=== PATIENT | female | born 1945 | race Caucasian/White ===

== ENCOUNTER 2016-12-28 10:58 | Inpatient (IN) | payer OTHER ==
[~2016-12-28] VITALS: Ht 154.9 cm; Wt 55.0 kg
[2016-12-28] MEDS ORDERED: ONDANSETRON 4 MG INJ IV STA (11:24)
[2016-12-28] MEDS ORDERED: SOD CHLORIDE 0.9% 1,000 ML IV STA (11:24)
[2016-12-28] MEDS ORDERED: KETOROLAC 30 MG INJ IV STA (11:24)
[2016-12-28 12:03] LABS: BASOPHIL # 0.1 10^3/ul (0.0-0.1); BASOPHILS % 0.4 % (0.0-2.0); EOSINOPHILS # 0.1 10^3/ul (0.0-0.5); EOSINOPHILS % 0.6 % (0.0-7.0); HEMATOCRIT 40.1 % (37.0-47.0); HEMOGLOBIN 13.2 g/dl (12.0-16.0); LYMPHOCYTES # 0.9 10^3/ul (0.8-2.9); LYMPHOCYTES % 7.5 % (15.0-51.0); MEAN CORPUSCULAR HEMOGLOBIN 29.9 pg (29.0-33.0); MEAN CORPUSCULAR HGB CONC 32.9 g/dl (32.0-37.0); MEAN CORPUSCULAR VOLUME 90.9 fl (82.0-101.0); MEAN PLATELET VOLUME 10.1 fl (7.4-10.4); MONOCYTES % 8.3 % (0.0-11.0); NEUTROPHILS % 82.8 % (39.0-77.0); PLATELET COUNT 229 10^3/UL (140-415); RED BLOOD COUNT 4.41 10^6/ul (4.20-5.40); RED CELL DISTRIBUTION WIDTH 12.6 % (11.5-14.5); WHITE BLOOD COUNT 12.5 10^3/ul (4.8-10.8)
[2016-12-28 12:25] LABS: ALBUMIN 4.5 g/dl (3.3-4.9); ALBUMIN/GLOBULIN RATIO 1.5; BILIRUBIN,INDIRECT 0.9 mg/dl (0-1.1); BILIRUBIN,TOTAL 0.9 mg/dl (0.2-1.3); CALCIUM 9.6 mg/dl (8.4-10.2); CREATININE 0.54 mg/dl (0.44-1.00); POTASSIUM 3.9 mmol/L (3.5-5.1); TOTAL PROTEIN 7.5 g/dl (6.1-8.1)
--- NOTE | 2016-12-28 12:48 | RADRPT ---
PROCEDURE: CT Abdomen and Pelvis without contrast. CLINICAL INDICATION: Lower abdominal pain TECHNIQUE: CT scan of the abdomen and pelvis without contrast was performed on a multidetector hig h-resolution CT scanner. The patient was scanned without intravenous contrast. Coronal and sagittal reformatted images were obtained from the axial source images. Images were reviewed on a high-resol [employer] PACS workstation. The total exam CTDI equals 15.24 mGy and the total exam DLP equals 695.9 mGy -cm. One or more of the following dose reduction techniques were used: Automated exposure control. Adjustment of the mA and/or kV according to patient size. Use of iterative reconstruction technique. COMPARISON: None FINDINGS: CT abdomen: The lung bases are remarkable for bibasilar atelectasis and linear pleuroparenchymal scarring. The heart size is normal, without pericardial thickening or effusion. The liver is normal in size and density without focal mass or intrahepatic biliary dilatation. There is approximately 1 cm hypodensity in the right hepatic lobe adjacent the gallbladder. The spleen i s normal in size and homogeneous in density. The stomach is partially collapsed, but is grossly unr emarkable. The pancreas as visualized is normal. The gallbladder is unremarkable. There is no evid ence for biliary dilatation. The adrenal glands are symmetric and normal. The kidneys are symmetri johanne unremarkable as well. No renal calculus or obstructive uropathy or mass lesion is seen. The aorta is of normal caliber. Aortic vascular calcifications are present. There is no retroperit lopez lymphadenopathy. The himanshu hepatis region is clear. The bowel and mesentery, as visualized, are equally unremarkable. CT pelvis: The appendix is enlarged with surrounding inflammatory changes in keeping with acute appendicitis. N o extraluminal gas or loculated periappendiceal fluid collection is identified. The small bowel loop s situated within the pelvis are unremarkable. The pelvic organs are normal. The pelvic sidewalls and inguinal regions are clear. The sigmoid colon and rectum are remarkable for scattered sigmoid d iverticuli without evidence of acute diverticulitis. No mass, lymphadenopathy, or free fluid is see n. The surrounding osseous structures are remarkable for degenerative spondylosis of the spine. No osteolytic or osteoblastic lesion is detected. There is levoconvex scoliosis of the thoracolumbar sp ine . Extensive thoracolumbar fusion hardware is noted down to the level of L4. IMPRESSION: 1. Enlarged appendix with surrounding inflammatory changes in keeping with acute appendicitis. No e xtraluminal gas or periappendiceal fluid collection. 2. Aortoiliac atherosclerosis. 3. Levoconvex scoliosis with extensive thoracolumbar fusion changes. 4. Scattered sigmoid diverticula without evidence of acute diverticulitis. RPTAT: BB .Peter Franco MD, Date Time Electronically viewed and signed by .Peter Franco MD, on 12/28/2016 12:48 .O/
[2016-12-28] MEDS ORDERED: ATEN50TA PO (12:58)
[2016-12-28] MEDS ORDERED: FLUT9.9S NASAL (12:59)
[2016-12-28] MEDS ORDERED: LOSA25TA5 PO (12:59)
[2016-12-28] MEDS ORDERED: OMEP20CA16 PO (12:59)
[2016-12-28] MEDS ORDERED: ASCO500C7 PO (13:01)
[2016-12-28] MEDS ORDERED: LORA-186 PO (13:02)
[2016-12-28] MEDS ORDERED: AMPICILLIN/SULB 3 GM/NS (PMX) 100 ML IVPB ONE (13:30)
--- NOTE | 2016-12-28 13:36 | RADRPT ---
PROCEDURE: XR Chest. CLINICAL INDICATION: Chest pain . TECHNIQUE: Single frontal chest x-ray. COMPARISON: 10/20/2013 FINDINGS: The lungs are clear of acute infiltrates, edema, effusions, or masses.. The cardiomediastinal silho uette is unremarkable. The osseous structures are intact. Fixation rods are seen along the thoracic spine. IMPRESSION: No acute cardiopulmonary disease. Thoracic spine fixation hardware. RPTAT: HJPL .Rajeev Waggoner MD, MD Date Time Electronically viewed and signed by .Rajeev Waggoner MD, on 12/28/2016 13:36 .L/
[2016-12-28] MEDS ORDERED: ONDANSETRON 4 MG INJ IV PRN ×2 (14:00→14:30)
[2016-12-28] MEDS ORDERED: ACETAMINOPHEN 325 MG TAB PO PRN ×2 (14:00→14:30)
--- NOTE | 2016-12-28 14:29 | ERA ---
ER Documentation Chief Complaint Date/Time DATE: 12/28/16 TIME: 14:27 Chief Complaint RLQ ABD PAIN, NAUSEA, NO CONSTIPATION/DIARRHEA, ONSET 1 DAY HPI Patient is a 71-year-old female with hypertension and high cholesterol who presents with abdominal pain. She has right lower quadrant abdominal pain. She had an episode of pain one month ago which lasted 1 week and then went away. She said the pain was there and she was concerned for appendicitis so she went to an emergency department in [place] and did not get a CT scan at that time. She said that the pain returned last night and is a sharp pain in the right lower quadrant which is constant. It is worse with movement. She did have a bowel movement this morning. She has had no treatment as of yet. Upon review of old medical records the patient had one previous visit to the ER in 2013. ROS All systems reviewed and are negative except as per history of present illness. Medications Home Meds Reported Medications Loratadine* (Claritin*) 10 Mg Tablet, 10 MG PO DAILY, TAB 12/28/16 Ascorbic Acid* (Vitamin C*) 500 Mg Capsule.sa, 500 MG PO DAILY, CAP 12/28/16 Omeprazole* (Omeprazole*) 20 Mg Capsule.dr, 20 MG PO DAILY, #30 CAP 12/28/16 Fluticasone Propionate (Flonase Allergy Relief) 9.9 Ml [place].susp, 1 SPRAY NASAL DAILY, #1 BOTTLE TO EACH NOSTRIL 12/28/16 Losartan Potassium* (Losartan Potassium*) 25 Mg Tablet, 25 MG PO DAILY, TAB 12/28/16 Atenolol* (Atenolol*) 50 Mg Tablet, 50 MG PO DAILY, #30 TAB 12/28/16 Allergies Allergies: Coded Allergies: No Known Allergy (Unverified , 10/20/13) PMhx/Soc History of Surgery: Yes (spinal fussion) Hx Psychiatric Problems: No Hx Miscellaneous Medical Probl: No (htn,artheritis.high cholesterol) Hx Alcohol Use: No Hx Substance Use: No Hx Tobacco Use: No Smoking Status: Never smoker FmHx Family History: No diabetes Physical Exam Vitals Vital Signs Date Time Temp Pulse Resp B/P Pulse Ox O2 Delivery O2 Flow Rate FiO2 12/28/16 14:00 98.7 53 16 117/78 98 Room Air 12/28/16 11:04 99.8 53 17 122/70 95 Physical Exam Const: Moderate distress secondary to pain Head: Atraumatic Eyes: Normal Conjunctiva ENT: Normal External Ears, Nose and Mouth. Neck: Full range of motion..~ No meningismus. Resp: Clear to auscultation bilaterally Cardio: Regular rate and rhythm, no murmurs Abd: Soft, Right lower quadrant tenderness to palpation with guarding Skin: No petechiae or rashes Back: No midline or flank tenderness Ext: No cyanosis, or edema Neur: Awake and alert Psych: Normal Mood and Affect Result Diagram: 12/28/16 1140 12/28/16 1140 Results 24 hrs Laboratory Tests Test 12/28/16 11:40 12/28/16 13:20 White Blood Count 12.510^3/ul Red Blood Count 4.4110^6/ul Hemoglobin 13.2g/dl Hematocrit 40.1% Mean Corpuscular Volume 90.9fl Mean Corpuscular Hemoglobin 29.9pg Mean Corpuscular Hemoglobin Concent 32.9g/dl Red Cell Distribution Width 12.6% Platelet Count 34624^3/UL Mean Platelet Volume 10.1fl Neutrophils % 82.8% Lymphocytes % 7.5% Monocytes % 8.3% Eosinophils % 0.6% Basophils % 0.4% Nucleated Red Blood Cells % 0.0/100WBC Lymphocytes # 0.910^3/ul Monocytes # 1.010^3/ul Eosinophils # 0.110^3/ul Basophils # 0.110^3/ul Nucleated Red Blood Cells # 0.010^3/ul Sodium Level 140mmol/L Potassium Level 3.9mmol/L Chloride Level 102mmol/L Carbon Dioxide Level 31mmol/L Anion Gap 11 Blood Urea Nitrogen 16mg/dl Creatinine 0.54mg/dl Glucose Level 114mg/dl Calcium Level 9.6mg/dl Total Bilirubin 0.9mg/dl Direct Bilirubin 0.00mg/dl Indirect Bilirubin 0.9mg/dl Aspartate Amino Transf (AST/SGOT) 62IU/L Alanine Aminotransferase (ALT/SGPT) 92IU/L Alkaline Phosphatase 129IU/L Total Protein 7.5g/dl Albumin 4.5g/dl Globulin 3.00g/dl Albumin/Globulin Ratio 1.50 Lipase 45U/L Troponin I < 0.012ng/ml Current Medications Medications (Trade) Dose Ordered Sig/Little Route PRN Reason Start Time Stop Time Status Last Admin Dose Admin Sodium Chloride (NS) 1,000 ml @ 1,000 mls/hr Q1H STAT IV 12/28/16 11:24 12/28/16 12:23 DC 12/28/16 12:25 Ondansetron HCl (Zofran Inj) 4 mg ONCE STAT IV 12/28/16 11:24 12/28/16 11:25 DC 12/28/16 12:27 Ketorolac Tromethamine 30 mg 30 mg ONCE STAT IV 12/28/16 11:24 12/28/16 11:25 DC 12/28/16 12:26 Ampicillin Sodium/ Sulbactam Sodium (Unasyn 3gm/NS (Pmx)) 100 ml @ 100 mls/hr ONCE ONCE IVPB 12/28/16 13:30 12/28/16 14:29 Ondansetron HCl (Zofran Inj) 4 mg BRIDGE ORDER PRN IV NAUSEA AND/OR VOMITING 12/28/16 14:00 12/29/16 13:59 Acetaminophen (Tylenol Tab) 650 mg ER BRIDGE PRN PO MILD PAIN/FEVER 12/28/16 14:00 12/29/16 13:59 Ascorbic Acid (Vitamin C) 500 mg DAILY PO 12/29/16 09:00 UNV Atenolol (Tenormin) 50 mg DAILY PO 12/29/16 09:00 UNV Fluticasone Propionate (Flonase 0.05% Nasal) 1 spray DAILY NASAL 12/29/16 09:00 UNV Loratadine (Claritin) 10 mg DAILY PO 12/29/16 09:00 UNV Losartan Potassium (Cozaar) 25 mg DAILY PO 12/29/16 09:00 UNV Miscellaneous Information 20 mg 20 mg DAILY PO 12/29/16 09:00 UNV Sodium Chloride (NS) 1,000 ml @ 80 mls/hr [id number] IV 12/28/16 14:11 UNV IV Flush (NS 3 ml) 3 ml PER PROTOCOL IV 12/28/16 14:30 UNV Ondansetron HCl (Zofran Inj) 4 mg Q6H PRN IV NAUSEA AND/OR VOMITING 12/28/16 14:30 UNV Acetaminophen (Tylenol Tab) 650 mg Q6H PRN PO PAIN LEVEL 1-3 OR FEVER 12/28/16 14:30 UNV Acetaminophen (Tylenol Supp) 650 mg Q6H PRN [place] PAIN LEVEL 1-3 OR FEVER 12/28/16 14:30 UNV Acetaminophen/ Hydrocodone Bitart ([place] (5/325)) 1 tab Q6H PRN PO MODERATE PAIN LEVEL 4-6 12/28/16 14:30 UNV Acetaminophen/ Hydrocodone Bitart ([place] (5/325)) 2 tab Q6H PRN PO SEVERE PAIN LEVEL 7-10 12/28/16 14:30 UNV Morphine Sulfate (morphine) 2 mg Q4H PRN IV SEVERE PAIN LEVEL 7-10 12/28/16 14:30 UNV Docusate Sodium (Colace) 100 mg Q12H PRN PO CONSTIPATION 12/28/16 14:30 UNV Magnesium Hydroxide (Milk Of Mag) 30 ml DAILY PRN PO CONSTIPATION 12/28/16 14:30 UNV Bisacodyl (Dulcolax Supp) 10 mg DAILY PRN [place] CONSTIPATION 12/28/16 14:30 UNV Pantoprazole (Protonix Iv) 40 mg DAILY@06 IV 12/29/16 06:00 UNV Procedures/MDM CT abdomen/pelvis shows acute appendicitis. EKG read by me: Rate/Rhythm: Regular rate and rhythm at a normal rate Intervals: Normal Impression: No evidence of ischemia or arrhythmia Chest x-ray pending at this time. Patient is a 71-year-old female presents with acute appendicitis. She will be admitted to the care of Dr. Ayoub from the panel team to a medical surgical bed. I spoke with Dr. Hebert surgeon on-call who will see the patient in consultation. The patient has scan HMO and per the financial team will be admitted to the hospitalist correction worker. The patient was given Unasyn IV. I doubt sepsis at this time. Departure Diagnosis: Primary Impression: Appendicitis Qualified Code: K35.3 - Acute appendicitis with localized peritonitis Additional Impression: Abdominal pain Qualified Code: R10.31 - Right lower quadrant abdominal pain Condition: VICTOR HUGO David MD Dec 28, 2016 14:29
[2016-12-28] MEDS ORDERED: NACL 0.9% 3 ML SYG IV SCH (14:30)
[2016-12-28] MEDS ORDERED: ACETAMINOPHEN 650 MG SUPP PR PRN (14:30)
[2016-12-28] MEDS ORDERED: DOCUSATE SODIUM 100 MG CAP PO PRN (14:30)
[2016-12-28] MEDS ORDERED: HYDROCODONE/APAP (5/325) TAB PO PRN ×2 (14:30)
[2016-12-28] MEDS ORDERED: morphine 2 MG INJ IV PRN (14:30)
[2016-12-28] MEDS ORDERED: MAGNESIUM HYDROXIDE 30ML CUP PO PRN (14:30)
[2016-12-28] MEDS ORDERED: BISACODYL 10 MG SUPP PR PRN (14:30)
[2016-12-28 14:32] LABS: INR 0.92; PARTIAL THROMBOPLASTIN TIME 26.9 Sec (25.0-35.0); PROTIME 12.4 Sec (12.2-14.2)
--- NOTE | 2016-12-28 15:29 | HP ---
Date/Time of Note Date/Time of Note DATE: 12/28/16 TIME: 15:20 Assessment/Plan VTE Prophylaxis VTE Prophylaxis Intervention: SCD's Assessment/Plan Chief Complaint/Hosp Course Impression and plan 1. Acute appendicitis. Patient seen by surgeon. At this time patient preferring conservative management at this time. Will trial on antibiotics and see for clinical improvement. Likely if no improvement patient will need surgery. Will follow up. 2. Essential hypertension. Continue antihypertensives as needed. 3. Dyspnea. Follow-up in fasting with panel. 4. History of thyroid nodule. Patient to follow-up as outpatient for this issue. 5. Leukocytosis likely secondary to #1. Continue antibiotics. 6. Transaminitis. Etiology unknown at this time. Patient denies any history of alcohol consumption. Will follow up on acute hepatitis panel. Admission process >40 minutes Discussed plan of care with Dr. Ayoub Problems: HPI/ROS Admit Date/Time Admit Date/Time Hx of Present Illness This is a 71-year-old female with history of dyslipidemia, hypertension, arthritis, who came to [facility] due to reports of abdominal pain. According to the patient and her abdominal pain started roughly 3 weeks ago. She did report that this did subside however she reported last night she started having again pain on right lower abdominal quadrant with associated nausea. She subsequently went to [facility] for further evaluation. Upon examination she had a white count of 12.5. Chemistry with otherwise unremarkable but she did have some Transaminitis. She denies any drinking smoking or alcohol consumption. She was noted with a low-grade fever of 99.8. Abdominal CT scan did show her to have enlarged appendix with surrounding inflammatory changes with clinical picture of appendicitis. There are also seen some scattered sigmoid diverticula without evidence of diverticulitis. Patient currently reports having some right lower quadrant abdominal pain. Less now. Will evaluate her for aformentiond issues. ROS 12 point review of systems obtained and negative except as mentioned in the history of present illness PMH/Family/Social Past Medical History Medical/surgical history 1. Hypertension 2. High cholesterol 3. Arthritis 4. 5. 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, nl mental status, nl speech Skin: nl turgor Labs Result Diagram: 12/28/16 1140 12/28/16 1140 Medications Medications Current Medications Ascorbic Acid (Vitamin C) 500 mg DAILY PO ; Start 12/29/16 at 09:00 Atenolol (Tenormin) 50 mg DAILY PO ; Start 12/29/16 at 09:00 Fluticasone Propionate (Flonase 0.05% Nasal) 1 spray DAILY NASAL ; Start at 09:00 Loratadine (Claritin) 10 mg DAILY PO ; Start 12/29/16 at 09:00 Losartan Potassium 25 mg 25 mg DAILY PO ; Start 12/29/16 at 09:00 Sodium Chloride (NS) 1,000 ml @ 80 mls/hr [id number] IV ; Start 12/28/16 at 14:11 Ondansetron HCl (Zofran Inj) 4 mg Q6H PRN IV NAUSEA AND/OR VOMITING; Start at 14:30 Acetaminophen (Tylenol Tab) 650 mg Q6H PRN PO PAIN LEVEL 1-3 OR FEVER; Start at 14:30 Acetaminophen (Tylenol Supp) 650 mg Q6H PRN [place] PAIN LEVEL 1-3 OR FEVER; Start 12/28/16 at 14:30 Acetaminophen/ Hydrocodone Bitart ([place] (5/325)) 1 tab Q6H PRN PO MODERATE PAIN LEVEL 4-6; Start 12/28/16 at 14:30 Acetaminophen/ Hydrocodone Bitart ([place] (5/325)) 2 tab Q6H PRN PO SEVERE PAIN LEVEL 7-10; Start 12/28/16 at 14:30 Morphine Sulfate (morphine) 2 mg Q4H PRN IV SEVERE PAIN LEVEL 7-10; Start 12/28 at 14:30 Docusate Sodium (Colace) 100 mg Q12H PRN PO CONSTIPATION; Start 12/28/16 at 14: 30 Magnesium Hydroxide (Milk Of Mag) 30 ml DAILY PRN PO CONSTIPATION; Start at 14:30 Bisacodyl (Dulcolax Supp) 10 mg DAILY PRN [place] CONSTIPATION; Start 12/28/16 at 14 :30 Pantoprazole (Protonix Iv) 40 mg DAILY@06 IV ; Start 12/29/16 at 06:00 ASIM MASSEY Dec 28, 2016 15:29
--- NOTE | 2016-12-28 15:54 | CONS ---
Date/Time of Note Date/Time of Note DATE: 12/28/16 TIME: 15:33 Assessment/Plan Assessment/Plan Chief Complaint/Hosp Course 1. Mild appendicitis: No appendicolith: May be treated with IV abx followed by oral abx vs. surgery -abx -npo -poss lap appy: patient to decide -pain management -ivf 2. Leukocytosis: likely 2/2 above -as above -supportive 3. RLQ pain: 2/2 #1 -as above 4. History of hypertension -medical management 5. High cholesterol -medical management -diet optimization 6. Transaminitis: -if persistent may need further workup 7. Diverticulosis without diverticulitis -medical management -diet optimization Patient seen and examined in collaboration with Dr. Mj Hebert. Thank you. Problems: Consultation Date/Type/Reason Admit Date/Time Date of Consultation: Dec 28, 2016 Type of Consultation: SURGICAL Reason for Consultation appendicitis Referring Provider: ASIM MASSEY Hx of Present Illness Chaim Alejandro is a 71-year-old woman who presents to the ED with c/o abdominal pain worse on the right lower quadrant. She had a similar episode of pain one month ago which lasted 1 week and then went away without intervention. She describes the pain as sharp and persistent, worsened with activity and when pushing on her RLQ. No alleviating factors. She did have a bowel movement this morning. She denies vomiting but reports nausea. Denies fevers, chills, diarrhea, dysuria. On CT, she was noted with an enlarged appendix with surrounding inflammatory changes in keeping with acute appendicitis. No extraluminal gas or periappendiceal fluid collection, no appendicolith. General surgery was called to evaluate. Constitutional: improved, No chills, No febrile Eyes: No visual change ENT: No congestion Respiratory: No cough, No shortness of breath Cardiovascular: No edema, No lightheadedness Gastrointestinal: nausea, pain, passing stool, No diarrhea, No vomiting Genitourinary: No dysuria, No flank pain, No hematuria Musculoskeletal: No back pain Skin: No bruising, No erythema Neurologic: No headache Endocrine: No polydypsia, No polyuria Psychological: nl mood/affect Past Medical History High colesterol Hypertension back pain Past Surgical History spine surgery Family History Significant Family History: no pertinent family hx Social History Alcohol Use: none Smoking Status: Never smoker Drug Use: none Exam/Review of Systems Vital Signs Vitals Vital Signs Date Time Temp Pulse Resp B/P Pulse Ox O2 Delivery O2 Flow Rate FiO2 12/28/16 14:00 98.7 53 16 117/78 98 Room Air Exam Constitutional: alert, oriented, well developed Psych: nl mood/affect Head: atraumatic, normocephalic Eyes: nl lids, nl sclera ENMT: mucosa pink and moist, nl nasal mucosa & septum Neck: non-tender, supple Respiratory: normal air movement Cardiovascular: nl pulses, regular rate and rhythm Gastrointestinal: distended (min), soft, tender (RLQ) Genitourinary - Female: nl external genitalia Musculoskeletal: nl extremities to inspection Extremities: normal pulses, No edema Neurological: nl mental status, nl speech, nl strength Skin: nl turgor, No rash or lesions Results Result Diagram: 12/28/16 1140 12/28/16 1140 Results 24 hrs Laboratory Tests Test 12/28/16 11:40 12/28/16 13:20 White Blood Count 12.5 H Red Blood Count 4.41 Hemoglobin 13.2 Hematocrit 40.1 Mean Corpuscular Volume 90.9 Mean Corpuscular Hemoglobin 29.9 Mean Corpuscular Hemoglobin Concent 32.9 Red Cell Distribution Width 12.6 Platelet Count 229 Mean Platelet Volume 10.1 Neutrophils % 82.8 H Lymphocytes % 7.5 L Monocytes % 8.3 Eosinophils % 0.6 Basophils % 0.4 Nucleated Red Blood Cells % 0.0 Lymphocytes # 0.9 Monocytes # 1.0 H Eosinophils # 0.1 Basophils # 0.1 Nucleated Red Blood Cells # 0.0 Sodium Level 140 Potassium Level 3.9 Chloride Level 102 Carbon Dioxide Level 31 Anion Gap 11 Blood Urea Nitrogen 16 Creatinine 0.54 Glucose Level 114 Calcium Level 9.6 Total Bilirubin 0.9 Direct Bilirubin 0.00 Indirect Bilirubin 0.9 Aspartate Amino Transf (AST/SGOT) 62 H Alanine Aminotransferase (ALT/SGPT) 92 H Alkaline Phosphatase 129 H Total Protein 7.5 Albumin 4.5 Globulin 3.00 Albumin/Globulin Ratio 1.50 Lipase 45 Prothrombin Time 12.4 Prothrombin Time Ratio 1.0 INR International Normalized Ratio 0.92 Activated Partial Thromboplast Time 26.9 Troponin I < 0.012 Medications Medications Current Medications Ascorbic Acid (Vitamin C) 500 mg DAILY PO ; Start 12/29/16 at 09:00 Atenolol (Tenormin) 50 mg DAILY PO ; Start 12/29/16 at 09:00 Fluticasone Propionate (Flonase 0.05% Nasal) 1 spray DAILY NASAL ; Start at 09:00 Loratadine (Claritin) 10 mg DAILY PO ; Start 12/29/16 at 09:00 Losartan Potassium 25 mg 25 mg DAILY PO ; Start 12/29/16 at 09:00 Sodium Chloride (NS) 1,000 ml @ 80 mls/hr [id number] IV ; Start 12/28/16 at 14:11 Ondansetron HCl (Zofran Inj) 4 mg Q6H PRN IV NAUSEA AND/OR VOMITING; Start at 14:30 Acetaminophen (Tylenol Tab) 650 mg Q6H PRN PO PAIN LEVEL 1-3 OR FEVER; Start at 14:30 Acetaminophen (Tylenol Supp) 650 mg Q6H PRN [place] PAIN LEVEL 1-3 OR FEVER; Start 12/28/16 at 14:30 Acetaminophen/ Hydrocodone Bitart ([place] (5/325)) 1 tab Q6H PRN PO MODERATE PAIN LEVEL 4-6; Start 12/28/16 at 14:30 Acetaminophen/ Hydrocodone Bitart ([place] (5/325)) 2 tab Q6H PRN PO SEVERE PAIN LEVEL 7-10; Start 12/28/16 at 14:30 Morphine Sulfate (morphine) 2 mg Q4H PRN IV SEVERE PAIN LEVEL 7-10; Start 12/28 at 14:30 Docusate Sodium (Colace) 100 mg Q12H PRN PO CONSTIPATION; Start 12/28/16 at 14: 30 Magnesium Hydroxide (Milk Of Mag) 30 ml DAILY PRN PO CONSTIPATION; Start at 14:30 Bisacodyl (Dulcolax Supp) 10 mg DAILY PRN [place] CONSTIPATION; Start 12/28/16 at 14 :30 Pantoprazole (Protonix Iv) 40 mg DAILY@06 IV ; Start 12/29/16 at 06:00 AIRAM OLIVO NP Dec 28, 2016 15:53
[2016-12-28 16:18] VITALS: PULSE 54; TEMP 98.7
[2016-12-28 16:40] VITALS: Ht 154.9 cm; Wt 55.0 kg
[2016-12-28] MEDS: SOD CHLORIDE 0.9% 1,000 ML IV SCH (17:52)
[2016-12-28 20:35] VITALS: BP 117/59; RESP 20
[2016-12-28] MEDS: ACETAMINOPHEN 1000MG/100ML IV 100 ML IVPB SCH (20:47)
[2016-12-28] MEDS: CIPROFLOXACIN 200 MG/D5W IVPB 100 ML IVPB SCH (21:30)
[2016-12-28] MEDS: metroNIDAZOLE 500 MG/NS (PMX) 100 ML IVPB SCH (22:38)
[2016-12-29 00:27] VITALS: BP 118/60; RESP 18
[2016-12-29] MEDS: SOD CHLORIDE 0.9% 1,000 ML IV SCH ×3 (02:41→20:17)
[2016-12-29 03:15] LABS: ADD UMIC NO; UR ASCORBIC ACID NEGATIVE (NEGATIVE); UR BILIRUBIN (Dip) NEGATIVE (NEGATIVE); UR BLOOD (Dip) NEGATIVE (NEGATIVE); UR CLARITY SLIGHTLY CLOUDY (CLEAR); UR COLOR YELLOW (YELLOW); UR GLUCOSE (Dip) NEGATIVE (NEGATIVE); UR KETONES (Dip) TRACE mg/dL (NEGATIVE); UR LEUKOCYTE ESTERASE (Dip) NEGATIVE Leu/ul (NEGATIVE); UR MUCUS MODERATE /HPF (NONE SEEN); UR NITRITE (Dip) NEGATIVE (NEGATIVE); UR RBC 0 /HPF (0-5); UR SPECIFIC GRAVITY (Dip) 1.031 (1.003-1.030); UR TOTAL PROTEIN (Dip) NEGATIVE (NEGATIVE); UR UROBILINOGEN (Dip) NEGATIVE (NEGATIVE)
[2016-12-29] MEDS: ACETAMINOPHEN 1000MG/100ML IV 100 ML IVPB SCH ×3 (04:19→20:14)
[2016-12-29 05:41] LABS: ALBUMIN 3.2 g/dl (3.3-4.9); ALBUMIN/GLOBULIN RATIO 1.23; BILIRUBIN,INDIRECT 0.8 mg/dl (0-1.1); BILIRUBIN,TOTAL 0.8 mg/dl (0.2-1.3); CALCIUM 8.7 mg/dl (8.4-10.2); CREATININE 0.56 mg/dl (0.44-1.00); MAGNESIUM 2.1 mg/dl (1.7-2.5); PHOSPHORUS 3.6 mg/dl (2.5-4.9); POTASSIUM 3.3 mmol/L (3.5-5.1); TOTAL PROTEIN 5.8 g/dl (6.1-8.1)
[2016-12-29] MEDS: metroNIDAZOLE 500 MG/NS (PMX) 100 ML IVPB SCH ×3 (05:51→22:36)
[2016-12-29] MEDS ORDERED: PANTOPRAZOLE 40 MG INJ IV SCH (06:00)
[2016-12-29 07:02] LABS: THYROID STIMULATING HORMONE 0.313 MIU/L (0.465-4.680)
[2016-12-29 07:48] VITALS: BP 105/54; RESP 19
[2016-12-29] MEDS ORDERED: NON-FORMULARY/PATIENT OWN MED (Omeprazole* 20 MG) PO SCH (09:00)
[2016-12-29] MEDS: ASCORBIC ACID 500 MG TAB PO SCH (09:00)
[2016-12-29] MEDS: CIPROFLOXACIN 200 MG/D5W IVPB 100 ML IVPB SCH ×2 (09:21→21:22)
[2016-12-29 09:50] LABS: BASOPHILS % 0.4 % (0.0-2.0); EOSINOPHILS # 0.2 10^3/ul (0.0-0.5); EOSINOPHILS % 2.1 % (0.0-7.0); HEMATOCRIT 37.4 % (37.0-47.0); HEMOGLOBIN 12.1 g/dl (12.0-16.0); LYMPHOCYTES # 1.1 10^3/ul (0.8-2.9); LYMPHOCYTES % 15.6 % (15.0-51.0); MEAN CORPUSCULAR HEMOGLOBIN 30.3 pg (29.0-33.0); MEAN CORPUSCULAR HGB CONC 32.4 g/dl (32.0-37.0); MEAN CORPUSCULAR VOLUME 93.7 fl (82.0-101.0); MEAN PLATELET VOLUME 10.6 fl (7.4-10.4); MONOCYTE # 0.8 10^3/ul (0.3-0.9); MONOCYTES % 11.1 % (0.0-11.0); NEUTROPHIL # 5.1 10^3/ul (1.6-7.5); NEUTROPHILS % 70.7 % (39.0-77.0); PLATELET COUNT 172 10^3/UL (140-415); RED BLOOD COUNT 3.99 10^6/ul (4.20-5.40); RED CELL DISTRIBUTION WIDTH 12.7 % (11.5-14.5); WHITE BLOOD COUNT 7.2 10^3/ul (4.8-10.8)
[2016-12-29] MEDS: FLUTICASONE 0.05% 16 GM NAS SPRAY NASAL SCH (11:11)
[2016-12-29] MEDS: ATENOLOL 50 MG TAB PO SCH (11:21)
[2016-12-29] MEDS: LOSARTAN 25 MG TAB PO SCH (11:21)
[2016-12-29] MEDS: LORATADINE 10 MG TAB PO SCH (11:21)
--- NOTE | 2016-12-29 13:32 | PN ---
Date/Time of Note Date/Time of Note DATE: 12/29/16 TIME: 13:27 Assessment/Plan Lines/Catheters IV Catheter Type (from Nrsg): Saline Lock Bruner in Place (from Nrsg): No Assessment/Plan Chief Complaint/Hosp Course 1. Mild appendicitis: No appendicolith: May be treated with IV abx followed by oral abx vs. surgery; patient refusing surgery at this point -abx -npo -pain management -ivf 2. Leukocytosis: likely 2/2 above- normalized -as above -supportive 3. RLQ pain: 2/2 #1: improving -as above 4. History of hypertension -medical management 5. High cholesterol -medical management -diet optimization 6. Transaminitis: normalized 7. Diverticulosis without diverticulitis -medical management -diet optimization 8. Hypoalbuminemia: likely 2/2 malnutrition -nutrition optimization 9. Low TSH: poss hypothyroidism -further work up by medical team 10. Hypokalemia: -replete and monitor Patient seen and examined in collaboration with Dr. Mj Hebert. Thank you. Problems: Subjective 24 Hr Interval Summary RLQ pain improved. Continues to have tenderness upon palpation. Still would like to hold off on surgery for now. No fevers, chills, sob, congested cough, cp , palpitations, n/v/d/dysuria. +flatus Exam/Review of Systems Vital Signs Vitals Vital Signs Date Time Temp Pulse Resp B/P Pulse Ox O2 Delivery O2 Flow Rate FiO2 12/29/16 07:48 98.0 67 19 105/54 98 12/28/16 16:18 Room Air Intake and Output 12/28/16 12/28/16 12/29/16 15:00 23:00 07:00 Intake Total 1000 ml 300 ml 1150 ml Output Total 900 ml Balance 1000 ml 300 ml 250 ml Exam Free Text/Dictation Constitutional: alert, oriented, well developed Psych: nl mood/affect Head: atraumatic, normocephalic Eyes: nl lids, nl sclera ENMT: mucosa pink and moist, nl nasal mucosa & septum Neck: non-tender, supple Respiratory: normal air movement Cardiovascular: nl pulses, regular rate and rhythm Gastrointestinal: distended (min)-improved, soft, tender (RLQ) Genitourinary - Female: nl external genitalia Musculoskeletal: nl extremities to inspection Extremities: normal pulses, No edema Neurological: nl mental status, nl speech, nl strength Skin: nl turgor, No rash or lesions Results Result Diagram: 12/29/16 0434 12/29/16 0434 AIRAM OLIVO NP Dec 29, 2016 13:32
[2016-12-29 14:00] VITALS: BP 115/61; RESP 19
[2016-12-29 20:00] VITALS: BP 107/56; RESP 62
[2016-12-30 02:10] VITALS: BP 98/52; RESP 18
[2016-12-30] MEDS: ACETAMINOPHEN 1000MG/100ML IV 100 ML IVPB SCH ×3 (04:27→20:17)
--- NOTE | 2016-12-30 04:47 | PN ---
Date/Time of Note Date/Time of Note LATE ENTRY DATE: 12/29/16 Assessment/Plan VTE Prophylaxis VTE Prophylaxis Intervention: SCD's Lines/Catheters IV Catheter Type (from Nrsg): Peripheral IV Urinary Cath still in place: No Assessment/Plan Chief Complaint/Hosp Course Impression and plan 1. Acute appendicitis. continue abx. Patient deferring surgery for now. Will follow up 2. Essential hypertension. Continue antihypertensives as needed. stable 3. hx dyslipidemia. stable. monitor 4. History of thyroid nodule. Patient to follow-up as outpatient for this issue. 5. Leukocytosis likely secondary to #1. Continue antibiotics. 6. Transaminitis. monitor LFT. stable DISPO/PLAN: cont abx. Will likely need surgery should pain symptoms persist. cont inhouse monitoring Discussed plan of care with Dr. Ayoub Problems: Subjective 24 Hr Interval Summary Free Text/Dictation still reports pain on RLQ of abd on palpation 7 out of 10 during palpation. Exam/Review of Systems Vital Signs Vitals Vital Signs Date Time Temp Pulse Resp B/P Pulse Ox O2 Delivery O2 Flow Rate FiO2 12/30/16 02:10 97.8 59 18 98/52 98 12/28/16 16:18 Room Air Intake and Output 12/29/16 12/29/16 12/30/16 15:00 23:00 07:00 Intake Total 200 ml 1065 ml 100 ml Balance 200 ml 1065 ml 100 ml Exam Constitutional: alert, oriented Psych: nl mood/affect Head: normocephalic Neck: supple, No jvd Respiratory: clear to auscultation, normal air movement Cardiovascular: regular rate and rhythm Gastrointestinal: soft, tender (Upon palpation right lower abdominal) Musculoskeletal: nl extremities to inspection Neurological: SEMI DRIVER II-XII intact, nl mental status, nl speech Skin: nl turgor Results Result Diagram: 12/29/164 12/29/16433 Medications Medications Current Medications Ascorbic Acid (Vitamin C) 500 mg DAILY PO ; Start 12/29/16 at 09:00 Atenolol (Tenormin) 50 mg DAILY PO Last administered on 12/29/16 11:21; Admin Dose 50 MG; Start 12/29/16 at 09:00 Fluticasone Propionate (Flonase 0.05% Nasal) 1 spray DAILY NASAL Last administered on 12/29/16 11:11; Admin Dose 1 SPRAY; Start 12/29/16 at 09:00 Loratadine (Claritin) 10 mg DAILY PO Last administered on 12/29/16 11:21; Admin Dose 10 MG; Start 12/29/16 at 09:00 Losartan Potassium 25 mg 25 mg DAILY PO Last administered on 12/29/16 11:21; Admin Dose 25 MG; Start 12/29/16 at 09:00 Sodium Chloride (NS) 1,000 ml @ 80 mls/hr [id number] IV Last administered on 12/29 20:17; Admin Dose 80 MLS/HR; Start 12/28/16 at 14:11 Ondansetron HCl (Zofran Inj) 4 mg Q6H PRN IV NAUSEA AND/OR VOMITING; Start at 14:30 Acetaminophen (Tylenol Tab) 650 mg Q6H PRN PO PAIN LEVEL 1-3 OR FEVER; Start at 14:30 Acetaminophen (Tylenol Supp) 650 mg Q6H PRN [place] PAIN LEVEL 1-3 OR FEVER; Start 12/28/16 at 14:30 Acetaminophen/ Hydrocodone Bitart ([place] (5/325)) 1 tab Q6H PRN PO MODERATE PAIN LEVEL 4-6; Start 12/28/16 at 14:30 Acetaminophen/ Hydrocodone Bitart ([place] (5/325)) 2 tab Q6H PRN PO SEVERE PAIN LEVEL 7-10; Start 12/28/16 at 14:30 Morphine Sulfate (morphine) 2 mg Q4H PRN IV SEVERE PAIN LEVEL 7-10; Start 12/28 at 14:30 Docusate Sodium (Colace) 100 mg Q12H PRN PO CONSTIPATION; Start 12/28/16 at 14: 30 Magnesium Hydroxide (Milk Of Mag) 30 ml DAILY PRN PO CONSTIPATION; Start at 14:30 Bisacodyl 10 mg 10 mg DAILY PRN [place] CONSTIPATION; Start 12/28/16 at 14:30 Ciprofloxacin/ Dextrose 100 ml @ 100 mls/hr BID IVPB Last administered on 12/29 21:22; Admin Dose 100 MLS/HR; Start 12/28/16 at 21:00 Metronidazole 100 ml @ 100 mls/hr Q8 IVPB Last administered on 12/29/16 22:36 ; Admin Dose 100 MLS/HR; Start 12/28/16 at 22:00 Acetaminophen (Ofirmev 1000mg/ 100ml Iv) 100 ml @ 400 mls/hr Q8H IVPB Last administered on 12/30/16 04:27; Admin Dose 400 MLS/HR; Start 12/28/16 at 20:30 Famotidine (Pepcid Iv) 20 mg BID IV ; Start 12/30/16 at 09:00 ASIM MASSEY Dec 30, 2016 04:47
[2016-12-30 06:01] LABS: BASOPHILS % 0.6 % (0.0-2.0); EOSINOPHILS # 0.1 10^3/ul (0.0-0.5); EOSINOPHILS % 1.9 % (0.0-7.0); HEMATOCRIT 32.6 % (37.0-47.0); HEMOGLOBIN 10.4 g/dl (12.0-16.0); LYMPHOCYTES # 1.3 10^3/ul (0.8-2.9); LYMPHOCYTES % 17.4 % (15.0-51.0); MEAN CORPUSCULAR HEMOGLOBIN 29.9 pg (29.0-33.0); MEAN CORPUSCULAR HGB CONC 31.9 g/dl (32.0-37.0); MEAN CORPUSCULAR VOLUME 93.7 fl (82.0-101.0); MEAN PLATELET VOLUME 10.2 fl (7.4-10.4); MONOCYTE # 0.8 10^3/ul (0.3-0.9); MONOCYTES % 11.3 % (0.0-11.0); NEUTROPHILS % 68.4 % (39.0-77.0); PLATELET COUNT 160 10^3/UL (140-415); RED BLOOD COUNT 3.48 10^6/ul (4.20-5.40); RED CELL DISTRIBUTION WIDTH 12.5 % (11.5-14.5); WHITE BLOOD COUNT 7.3 10^3/ul (4.8-10.8)
[2016-12-30] MEDS: metroNIDAZOLE 500 MG/NS (PMX) 100 ML IVPB SCH ×3 (06:08→22:49)
[2016-12-30 06:23] LABS: CALCIUM 8.4 mg/dl (8.4-10.2); CREATININE 0.47 mg/dl (0.44-1.00); POTASSIUM 3.8 mmol/L (3.5-5.1)
[2016-12-30] MEDS: DEXTROSE 5%-0.45% NACL 1,000 ML IV SCH ×2 (06:58→19:30)
[2016-12-30 07:24] VITALS: BP 135/64; RESP 19
[2016-12-30] MEDS: ASCORBIC ACID 500 MG TAB PO SCH (09:00)
[2016-12-30] MEDS: LOSARTAN 25 MG TAB PO SCH (09:08)
[2016-12-30] MEDS: ATENOLOL 50 MG TAB PO SCH (09:08)
[2016-12-30] MEDS: FAMOTIDINE 20 MG INJ IV SCH ×2 (09:08→20:17)
[2016-12-30] MEDS: FLUTICASONE 0.05% 16 GM NAS SPRAY NASAL SCH (09:08)
[2016-12-30] MEDS: CIPROFLOXACIN 200 MG/D5W IVPB 100 ML IVPB SCH ×2 (09:09→20:44)
[2016-12-30] MEDS: LORATADINE 10 MG TAB PO SCH (09:10)
--- NOTE | 2016-12-30 12:41 | PN ---
Date/Time of Note Date/Time of Note DATE: 12/30/16 TIME: 12:38 Assessment/Plan Lines/Catheters IV Catheter Type (from Nrs): Peripheral IV Bruner in Place (from Nrs): No Assessment/Plan Chief Complaint/Hosp Course 1. Mild appendicitis: No appendicolith: May be treated with IV abx followed by oral abx vs. surgery; patient refusing surgery at this point -abx -clears and advance as tolerated -dc home today or in am with oral abx x total of 10days 2. Leukocytosis: likely 2/2 above- normalized -as above -supportive 3. RLQ pain: 2/2 #1: improving -as above 4. History of hypertension -medical management 5. High cholesterol -medical management -diet optimization 6. Transaminitis: normalized 7. Diverticulosis without diverticulitis -medical management -diet optimization 8. Hypoalbuminemia: likely 2/2 malnutrition -nutrition optimization 9. Low TSH: poss hypothyroidism -further work up by medical team Thank you, Problems: Subjective 24 Hr Interval Summary RLQ pain improved (310). Still would like to hold off on surgery for now & continue with antibiotics. No fevers, chills, sob, congested cough, cp, palpitations, n/v/d/dysuria. Bowel function. Exam/Review of Systems Vital Signs Vitals Vital Signs Date Time Temp Pulse Resp B/P Pulse Ox O2 Delivery O2 Flow Rate FiO2 12/30/16 07:24 98.0 63 19 135/64 98 12/28/16 16:18 Room Air Intake and Output 12/29/16 12/29/16 12/30/16 15:00 23:00 07:00 Intake Total 200 ml 1065 ml 840 ml Output Total 800 ml Balance 200 ml 1065 ml 40 ml Exam Free Text/Dictation Constitutional: alert, oriented, well developed Psych: nl mood/affect Head: atraumatic, normocephalic Eyes: nl lids, nl sclera ENMT: mucosa pink and moist, nl nasal mucosa & septum Neck: non-tender, supple Respiratory: normal air movement Cardiovascular: nl pulses, regular rate and rhythm Gastrointestinal: distended (min)-improved, soft, very minimally tender (RLQ) Genitourinary - Female: nl external genitalia Musculoskeletal: nl extremities to inspection Extremities: normal pulses, No edema Neurological: nl mental status, nl speech, nl strength Skin: nl turgor, No rash or lesions Results Result Diagram: 12/30/16 0451 12/30/16 0450 SOSA LAWRENCE MD Dec 30, 2016 12:41
[2016-12-30 14:00] VITALS: BP 121/51; RESP 19
--- NOTE | 2016-12-30 14:51 | PN ---
Date/Time of Note Date/Time of Note DATE: 12/30/16 TIME: 14:47 Assessment/Plan VTE Prophylaxis VTE Prophylaxis Intervention: SCD's Lines/Catheters IV Catheter Type (from Nrs): Peripheral IV Urinary Cath still in place: No Assessment/Plan Assessment/Plan 1. Acute appendicitis. continue IV abx, , pt has been changing her mind, Today Gen Surgery talke dwith her again, no surgery paln, conservative Treatment with IV abx, d/c NPO today, start clear liquids, diet advancement as per Surgery 2. Essential hypertension. Continue antihypertensives as needed. stable 3. hx dyslipidemia. stable. monitor 4. History of thyroid nodule. Patient to follow-up as outpatient for this issue. 5. Leukocytosis likely secondary to #1. Continue antibiotics. 6. Transaminitis. monitor LFT. stable DISPO/PLAN: cont abx. pt changing mind so often about surgery- After having a very long talk with patient today by G surg- Plan is conservative management with IV abx, no surgery- pt is getting on clear liquids today- diet advancement as tolerated Subjective 24 Hr Interval Summary Free Text/Dictation pt c/o abdominal pain, also feel hungry Exam/Review of Systems Vital Signs Vitals Vital Signs Date Time Temp Pulse Resp B/P Pulse Ox O2 Delivery O2 Flow Rate FiO2 12/30/16 07:24 98.0 63 19 135/64 98 12/28/16 16:18 Room Air Intake and Output 12/29/16 12/29/16 12/30/16 15:00 23:00 07:00 Intake Total 200 ml 1065 ml 840 ml Output Total 800 ml Balance 200 ml 1065 ml 40 ml Exam Constitutional: alert, oriented Respiratory: clear to auscultation, normal air movement Cardiovascular: regular rate and rhythm Gastrointestinal: soft, tender (Upon palpation right lower abdominal) Musculoskeletal: nl extremities to inspection Neurological: TALENT ACQUISITION ASSOCIATE II-XII intact, nl mental status, nl speech Results Result Diagram: 12/30/1645012/30/16449 Results 24 hrs Laboratory Tests Test 12/30/16 04:50 12/30/16 04:51 12/30/16 07:27 12/30/16 08:10 Sodium Level 139 Potassium Level 3.8 Chloride Level 112 H Carbon Dioxide Level 22 Anion Gap 9 Blood Urea Nitrogen 10 Creatinine 0.47 Glucose Level 48 #*L Calcium Level 8.4 White Blood Count 7.3 Red Blood Count 3.48 L Hemoglobin 10.4 L Hematocrit 32.6 L Mean Corpuscular Volume 93.7 Mean Corpuscular Hemoglobin 29.9 Mean Corpuscular Hemoglobin Concent 31.9 L Red Cell Distribution Width 12.5 Platelet Count 160 Mean Platelet Volume 10.2 Neutrophils % 68.4 Lymphocytes % 17.4 Monocytes % 11.3 H Eosinophils % 1.9 Basophils % 0.6 Nucleated Red Blood Cells % 0.0 Neutrophils # 5.0 Lymphocytes # 1.3 Monocytes # 0.8 Eosinophils # 0.1 Basophils # 0.0 Nucleated Red Blood Cells # 0.0 Bedside Glucose 72 65 L Test 12/30/16 09:05 Bedside Glucose 76 Medications Medications Current Medications Ascorbic Acid (Vitamin C) 500 mg DAILY PO ; Start 12/29/16 at 09:00 Atenolol (Tenormin) 50 mg DAILY PO Last administered on 12/30/16 09:08; Admin Dose 50 MG; Start 12/29/16 at 09:00 Fluticasone Propionate (Flonase 0.05% Nasal) 1 spray DAILY NASAL Last administered on 12/30/16 09:08; Admin Dose 1 SPRAY; Start 12/29/16 at 09:00 Loratadine (Claritin) 10 mg DAILY PO Last administered on 12/30/16 09:10; Admin Dose 10 MG; Start 12/29/16 at 09:00 Losartan Potassium (Cozaar) 25 mg DAILY PO Last administered on 12/30/16 09:08 ; Admin Dose 25 MG; Start 12/29/16 at 09:00 Ondansetron HCl (Zofran Inj) 4 mg Q6H PRN IV NAUSEA AND/OR VOMITING; Start at 14:30 Acetaminophen (Tylenol Tab) 650 mg Q6H PRN PO PAIN LEVEL 1-3 OR FEVER; Start at 14:30 Acetaminophen (Tylenol Supp) 650 mg Q6H PRN [place] PAIN LEVEL 1-3 OR FEVER; Start 12/28/16 at 14:30 Acetaminophen/ Hydrocodone Bitart ([place] (5/325)) 1 tab Q6H PRN PO MODERATE PAIN LEVEL 4-6; Start 12/28/16 at 14:30 Acetaminophen/ Hydrocodone Bitart ([place] (5/325)) 2 tab Q6H PRN PO SEVERE PAIN LEVEL 7-10; Start 12/28/16 at 14:30 Morphine Sulfate (morphine) 2 mg Q4H PRN IV SEVERE PAIN LEVEL 7-10; Start 12/28 at 14:30 Docusate Sodium (Colace) 100 mg Q12H PRN PO CONSTIPATION; Start 12/28/16 at 14: 30 Magnesium Hydroxide (Milk Of Mag) 30 ml DAILY PRN PO CONSTIPATION; Start at 14:30 Bisacodyl 10 mg 10 mg DAILY PRN [place] CONSTIPATION; Start 12/28/16 at 14:30 Ciprofloxacin/ Dextrose 100 ml @ 100 mls/hr BID IVPB Last administered on 12/30 09:09; Admin Dose 100 MLS/HR; Start 12/28/16 at 21:00 Metronidazole 100 ml @ 100 mls/hr Q8 IVPB Last administered on 12/30/16 13:46 ; Admin Dose 100 MLS/HR; Start 12/28/16 at 22:00 Acetaminophen (Ofirmev 1000mg/ 100ml Iv) 100 ml @ 400 mls/hr Q8H IVPB Last administered on 12/30/16 13:05; Admin Dose 400 MLS/HR; Start 12/28/16 at 20:30 Famotidine 20 mg 20 mg BID IV Last administered on 12/30/16 09:08; Admin Dose 20 MG; Start 12/30/16 at 09:00 Dextrose/Sodium Chloride (D5-1/2ns) 1,000 ml @ 80 mls/hr [id number] IV Last administered on 12/30/16 06:58; Admin Dose 80 MLS/HR; Start 12/30/16 at 07:00 TIFFANIE VILLAVICENCIO MD Dec 30, 2016 14:51
[2016-12-30 19:51] VITALS: BP 172/79; RESP 19
[2016-12-30] MEDS ORDERED: hydrALAzine 20 MG INJ IV PRN (20:30)
[2016-12-30] MEDS ORDERED: FLUTICASONE 0.05% 16 GM NAS SPRAY NASAL PRN (23:30)
[2016-12-31 00:48] VITALS: BP 148/75; RESP 22
[2016-12-31] MEDS: DEXTROSE 5%-0.45% NACL 1,000 ML IV SCH (03:44)
[2016-12-31] MEDS: ACETAMINOPHEN 1000MG/100ML IV 100 ML IVPB SCH ×2 (05:16→12:30)
[2016-12-31 05:28] LABS: BASOPHIL # 0.1 10^3/ul (0.0-0.1); BASOPHILS % 0.7 % (0.0-2.0); EOSINOPHILS # 0.1 10^3/ul (0.0-0.5); EOSINOPHILS % 2.1 % (0.0-7.0); HEMATOCRIT 31.5 % (37.0-47.0); HEMOGLOBIN 10.6 g/dl (12.0-16.0); LYMPHOCYTES # 0.9 10^3/ul (0.8-2.9); LYMPHOCYTES % 13.5 % (15.0-51.0); MEAN CORPUSCULAR HEMOGLOBIN 30.4 pg (29.0-33.0); MEAN CORPUSCULAR HGB CONC 33.7 g/dl (32.0-37.0); MEAN CORPUSCULAR VOLUME 90.3 fl (82.0-101.0); MEAN PLATELET VOLUME 10.4 fl (7.4-10.4); MONOCYTE # 0.6 10^3/ul (0.3-0.9); NEUTROPHIL # 5.1 10^3/ul (1.6-7.5); NEUTROPHILS % 74.4 % (39.0-77.0); PLATELET COUNT 188 10^3/UL (140-415); RED BLOOD COUNT 3.49 10^6/ul (4.20-5.40); RED CELL DISTRIBUTION WIDTH 12.4 % (11.5-14.5); WHITE BLOOD COUNT 6.8 10^3/ul (4.8-10.8)
[2016-12-31 05:52] LABS: ALBUMIN 2.9 g/dl (3.3-4.9); ALBUMIN/GLOBULIN RATIO 1.11; BILIRUBIN,INDIRECT 0.4 mg/dl (0-1.1); BILIRUBIN,TOTAL 0.4 mg/dl (0.2-1.3); CALCIUM 8.6 mg/dl (8.4-10.2); CREATININE 0.47 mg/dl (0.44-1.00); POTASSIUM 3.3 mmol/L (3.5-5.1); TOTAL PROTEIN 5.5 g/dl (6.1-8.1)
[2016-12-31] MEDS: metroNIDAZOLE 500 MG/NS (PMX) 100 ML IVPB SCH ×2 (06:10→14:00)
[2016-12-31 07:00] VITALS: BP 147/73; RESP 20
[2016-12-31] MEDS: CIPROFLOXACIN 200 MG/D5W IVPB 100 ML IVPB SCH (08:46)
[2016-12-31] MEDS: FLUTICASONE 0.05% 16 GM NAS SPRAY NASAL SCH (08:47)
[2016-12-31] MEDS: ASCORBIC ACID 500 MG TAB PO SCH (08:47)
[2016-12-31] MEDS: FAMOTIDINE 20 MG INJ IV SCH (08:47)
[2016-12-31] MEDS: ATENOLOL 50 MG TAB PO SCH (08:48)
[2016-12-31] MEDS: LORATADINE 10 MG TAB PO SCH (08:48)
[2016-12-31] MEDS: LOSARTAN 25 MG TAB PO SCH (08:48)
[2016-12-31] MEDS ORDERED: POTASSIUM CHLORIDE (SR) 20 MEQ TAB PO STA (13:58)
[2016-12-31 14:00] VITALS: BP 146/68; RESP 18
--- NOTE | 2016-12-31 14:28 | PDOCDIS ---
Discharge Instructions CONDITION Patient Condition: Stable HOME CARE INSTRUCTIONS: Diet Instructions: Low Fat /Cholesterol ACTIVITY: Activity Restrictions: Slowly Increase Activity FOLLOW UP/APPOINTMENTS Follow-up Plan Please take your medications as prescribed. If he spirits any abdominal pain, nausea, vomiting, or fevers, please call 911, go to the ER, call your primary care doctor, call your general surgeon. MORGAN STRONG Dec 31, 2016 14:28
[2016-12-31] MEDS ORDERED: FLUT16SP17 NASAL (14:30)
[2016-12-31] MEDS ORDERED: METR500T14 PO (14:31)
[2016-12-31] MEDS ORDERED: LOPE2CAP PO (14:31)
[2016-12-31] MEDS ORDERED: ONDA4TAB8 PO (14:31)
[2016-12-31] MEDS ORDERED: LACT1CAP57 PO (14:31)
[2016-12-31] MEDS ORDERED: CIPR500T4 PO (14:31)
--- NOTE | 2016-12-31 18:15 | DS ---
DATE OF ADMISSION: 12/28/2016 DATE OF DISCHARGE: 12/31/2016 HOSPITAL COURSE: This is a 71-year-old female originally admitted on December 28, 2016, being discharged home on December 31, 2013. The patient came in initially with abdominal pain. She was diagnosed with acute appendicitis. This was found on imaging studies, so she was admitted, seen by general surgery team. She was started on antibiotics and pain control medications as well. Patient opted against surgery, so she was medically managed for her acute appendicitis. There were no signs of any appendicolith, so she was continued on medical management. She had slightly low potassium that was repleted on the day of discharge. Over the course of her hospital stay, her abdominal pain symptoms improved. She was able to ambulate and tolerate a p.o. diet. She had some nausea and diarrhea symptoms as well, but again no fevers as well, and this was controlled with p.r.n. medications as well for that, and because she is medically cleared from the consulting teams she will be discharged home today in improved condition. She has been given strict return precautions in the event she develops any fever, abdominal pain, nausea, vomiting symptoms. She will follow up with her regular doctor and surgery doctor in the clinic in the next one week. She will go home with the following medications: 1. Ciprofloxacin 500 mg p.o. b.i.d. for 10 days. 2. Flagyl 500 mg p.o. t.i.d. for 10 days. 3. Imodium 2 mg p.o. every 6 hours p.r.n. 4. Culturelle capsule daily. 5. Flonase spray every 4 hours p.r.n. 6. Zofran 4 mg p.o. every 6 hours p.r.n. 7. Vitamin C 500 mg daily. 8. Atenolol 50 mg daily. 9. Loratadine 10 mg daily. 10. Losartan 25 mg daily. 11. Omeprazole 20 mg daily. FINAL DIAGNOSES: 1. Abdominal pain secondary to acute appendicitis, medically managed. No surgery at this time. 2. Essential hypertension. 3. Mild dyspnea, improved. 4. History of thyroid nodule. 5. Mild transaminitis, improved now. 6. Arthritis. Time spent discharging the patient 50 minutes. Dictated By: Leo Moore MD /rickey/eyad /Document#: [id number]
--- NOTE | 2016-12-31 23:23 | PN ---
Date/Time of Note Date/Time of Note DATE: 12/31/16 TIME: 23:22 Assessment/Plan Lines/Catheters IV Catheter Type (from Nrs): Saline Lock Bruner in Place (from Nrs): No Assessment/Plan Chief Complaint/Hosp Course 1. Mild appendicitis: No appendicolith: May be treated with IV abx followed by oral abx vs. surgery; patient refusing surgery at this point -abx -clears and advance as tolerated -dc home today or in am with oral abx x total of 10days 2. Leukocytosis: likely 2/2 above- normalized -as above -supportive 3. RLQ pain: 2/2 #1: improving -as above 4. History of hypertension -medical management 5. High cholesterol -medical management -diet optimization 6. Transaminitis: normalized 7. Diverticulosis without diverticulitis -medical management -diet optimization 8. Hypoalbuminemia: likely 2/2 malnutrition -nutrition optimization 9. Low TSH: poss hypothyroidism -further work up by medical team Thank you, Problems: Subjective 24 Hr Interval Summary RLQ pain improved. Still would like to hold off on surgery for now & continue with antibiotics. No fevers, chills, sob, congested cough, cp, palpitations, n/v /d/dysuria. Bowel function. Exam/Review of Systems Vital Signs Vitals Vital Signs Date Time Temp Pulse Resp B/P Pulse Ox O2 Delivery O2 Flow Rate FiO2 12/31/16 14:00 98.1 68 18 146/68 97 12/28/16 16:18 Room Air Intake and Output 12/30/16 12/30/16 12/31/16 15:00 23:00 07:00 Intake Total 400 ml 1240 ml 1120 ml Balance 400 ml 1240 ml 1120 ml Exam Free Text/Dictation Constitutional: alert, oriented, well developed Psych: nl mood/affect Head: atraumatic, normocephalic Eyes: nl lids, nl sclera ENMT: mucosa pink and moist, nl nasal mucosa & septum Neck: non-tender, supple Respiratory: normal air movement Cardiovascular: nl pulses, regular rate and rhythm Gastrointestinal: distended (min)-improved, soft, very minimally tender (RLQ) Genitourinary - Female: nl external genitalia Musculoskeletal: nl extremities to inspection Extremities: normal pulses, No edema Neurological: nl mental status, nl speech, nl strength Skin: nl turgor, No rash or lesions Results Result Diagram: 12/31/16 0434 12/31/16 0434 SOSA LAWRENCE MD Dec 31, 2016 23:23
[2017-01-01] MEDS ORDERED: PANTOPRAZOLE (EC) 40 MG TAB PO SCH (06:00)
== END 2016-12-31 15:25 | disposition home or self-care (01) | DRG 372 ==
LOC: E/R 10:58 → MS1 13:33
PROVIDERS: ADMIT Internal Medicine; ATTEND Internal Medicine
DX: K35.3 Acute appendicitis with localized peritonitis (principal); E46 Unspecified protein-calorie malnutrition; I10 Essential (primary) hypertension; E78.5 Hyperlipidemia, unspecified; E04.1 Nontoxic single thyroid nodule; K57.30 Diverticulosis of large intestine without perforation or abscess without bleeding; E88.09 Other disorders of plasma-protein metabolism, not elsewhere classified; M19.90 Unspecified osteoarthritis, unspecified site; Z68.22 Body mass index [BMI] 22.0-22.9, adult; Z98.1 Arthrodesis status
CPT/HCPCS: 36415; 71010; 74176; 80048; 80053; 80061; 81001; 81003; 82962; 83036; 83690; 83735; 84100; 84436; 84443; 84479; 84484; 85025; 85610; 85730; 86850; 86900; 86901; 93005; 96361; 96365; 96375; C9113; J0131; J0295; J0360; J0744; J1885; J2405; J7030; J7042

== ENCOUNTER 2018-04-08 20:06 | Emergency (ER) | END 2018-04-08 20:38 | disposition left against medical advice (07) ==